=== PATIENT | male | born 1955 | race Caucasian/White ===

== ENCOUNTER 2017-11-20 07:02 | Day surgery (SDC) | payer OTHER ==
[2017-11-20 07:20] VITALS: BMI 44.7
[2017-11-20] MEDS ORDERED: PROPOFOL 20 ML ONE ×10 (08:12→08:14)
[2017-11-20 08:29] VITALS: TEMP 98
[2017-11-20 09:19] VITALS: BP 110/55; PULSE 62
--- NOTE | 2017-11-21 12:48 | PATH ---
Surgical Pathology Report Patient Name: HEIDY JOINER [facility]. Rec. #: [id number] /Age/Gender: 1955 (Age: 62) / M Account: [id number] Location: [facility]-ENDOSCOPY Taken: 11/20/2017 Received: 11/20/2017 Reported: 11/21/2017 Physicians: Jose Felix M.D. Specimen(s) Received POLYP DESCENDING COLON Clinical History Adenoma surveillance Postoperative diagnosis: Colon polyp, diverticulosis Final Diagnosis DESCENDING COLON, POLYP, BIOPSY: POLYPOID COLONIC MUCOSA WITH SMALL LYMPHOID AGGREGATE. Electronically Signed Wendy Romeo M.D. Gross Description Received in formalin, labeled "biopsy polyp descending colon" are 5 linares, irregular portions of soft tissue ranging from 0.1-0.3 cm. in greatest dimension. The specimens are submitted in toto in one cassette. /11/20/2017 saudi11/20/2017
== END 2017-11-20 09:27 | disposition home or self-care (01) ==
LOC: JASU-ENDO 07:02
PROVIDERS: ATTEND Internal Medicine Gastroenterology
PROC: 0DBM8ZX Excision of Descending Colon, Via Natural or Artificial Opening Endoscopic, Diagnostic (ICD-10-PCS; principal; 2017-11-20 08:00)
DX: Z12.11 Encounter for screening for malignant neoplasm of colon (principal); Z86.010 Personal history of colon polyps; D12.4 Benign neoplasm of descending colon; K64.8 Other hemorrhoids; K57.30 Diverticulosis of large intestine without perforation or abscess without bleeding
CPT/HCPCS: 88305-TC

== ENCOUNTER 2020-07-29 22:52 | Inpatient (IN) | payer BC ==
[2020-07-30] MEDS ORDERED: DEXAMETHASONE SOD PHOSPHATE 10 MG/1 ML VIAL IVPUSH ONE (00:25)
[2020-07-30] MEDS ORDERED: DEXAMETHASONE SOD PHOSPHATE 10 MG/1 ML VIAL ONE (00:37)
[2020-07-30 00:43] LABS: BASO % 0.3 % (0-2.0); EOS % 1.9 % (0-4.5); HEMATOCRIT 38.7 % (35.4-49); HEMOGLOBIN 12.7 GM/dL (11.7-16.9); LYMPH % 32.1 % (8-40); MCH 28.7 pg (25.7-33.7); MCHC 32.8 g/dl (32.0-35.9); MEAN CELL VOLUME 87.5 fl (80-96); MEAN PLT VOLUME 7.9 fl (7.5-11.1); MONO % 9.5 % (3.8-10.2); NEUT % 56.2 % (42.8-82.8); PLATELET COUNT 190 K/MM3 (134-434); RBC 4.43 M/mm3 (4.00-5.60); RDW 14.8 % (11.9-15.9); WHITE BLOOD COUNT 5.2 K/mm3 (4.0-10.0)
[2020-07-30 01:02] LABS: CHLORIDE 103 mmol/L (98-107); INR 1.08 (0.83-1.09); SODIUM 141 mmol/L (136-145)
[2020-07-30 01:04] LABS: ACTIVATED PTT 32.4 SECONDS (25.2-36.5)
[2020-07-30 01:05] LABS: ALBUMIN 3.1 g/dl (3.4-5.0); ANION GAP 6 MMOL/L (8-16); BLOOD UREA NITROGEN 11.8 mg/dL (7-18); CO2 32 mmol/L (21-32); GLUCOSE,RANDOM 89 mg/dL (74-106)
[2020-07-30 01:08] LABS: BILIRUBIN,DIRECT 0.2 mg/dL (0.0-0.2); CREATININE 0.9 mg/dL (0.55-1.3); EPI CELLS 10 /uL (0-25.1); HYALINE CASTS 4 /uL (0-3.1); SGOT/AST 21 U/L (15-37); SGPT/ALT 24 U/L (13-61); URINE APPEARANCE CLEAR; URINE BACTERIA 24 /uL (0-1359); URINE BILIRUBIN NEGATIVE (NEGATIVE); URINE COLOR DK YELLOW; URINE GLUCOSE (UA) NEGATIVE (NEGATIVE); URINE KETONE TRACE (NEGATIVE); URINE LEUK ESTERASE NEGATIVE (NEGATIVE); URINE NITRITE NEGATIVE (NEGATIVE); URINE PROTEIN 1+ (NEGATIVE); URINE RBC 15 /uL (0-23.9); URINE UROBILINOGEN 0.2 mg/dL (0.2-1.0); URINE WBC 8 /uL (0-25.8)
[2020-07-30 01:09] LABS: LDH 221 U/L (87-246)
[2020-07-30 01:10] LABS: BILIRUBIN,TOTAL 0.5 mg/dL (0.2-1); TOT PROT 6.7 g/dl (6.4-8.2)
[2020-07-30 01:11] LABS: ALK PHOS 69 U/L (45-117)
[2020-07-30 01:13] LABS: N-TERMINAL BNP 35.4 pg/ml (5-125)
[2020-07-30] MEDS ORDERED: ZINC SULFATE 220 MG CAPSULE (FP) PO ONE (03:04)
[2020-07-30] MEDS ORDERED: ZINC SULFATE 220 MG CAPSULE (FP) ONE (03:28)
[2020-07-30 07:31] LABS: BLOOD UREA NITROGEN 11.5 mg/dL (7-18)
[2020-07-30 07:34] LABS: CREATININE 0.9 mg/dL (0.55-1.3)
[2020-07-30 07:40] LABS: BASO % 0.3 % (0-2.0); EOS % 1.6 % (0-4.5); HEMATOCRIT 39.2 % (35.4-49); HEMOGLOBIN 12.9 GM/dL (11.7-16.9); LYMPH % 25.4 % (8-40); MCH 28.9 pg (25.7-33.7); MEAN CELL VOLUME 87.4 fl (80-96); MEAN PLT VOLUME 8.2 fl (7.5-11.1); MONO % 9.6 % (3.8-10.2); NEUT % 63.1 % (42.8-82.8); PLATELET COUNT 180 K/MM3 (134-434); RBC 4.48 M/mm3 (4.00-5.60); RDW 15.1 % (11.9-15.9); WHITE BLOOD COUNT 6.6 K/mm3 (4.0-10.0)
[2020-07-30] MEDS ORDERED: FAMOTIDINE 20 MG TABLET ONE (09:10)
[2020-07-30] MEDS ORDERED: DEXAMETHASONE SOD PHOSPHATE 4 MG/1 ML VIAL ONE (09:10)
[2020-07-30] MEDS ORDERED: LOSARTAN POTASSIUM 50 MG TABLET ONE (09:10)
[2020-07-30] MEDS ORDERED: ENOXAPARIN NA (PORCINE) 40 MG/0.4 ML DISP.SYRIN SQ ONE (09:10)
[2020-07-30] MEDS ORDERED: CHOLECALCIFEROL (VIT D3) 1,000 UNIT (25 MCG) TABLET ONE (09:10)
[2020-07-30] MEDS ORDERED: amLODIPine BESYLATE 5 MG TABLET (FP) ONE (09:10)
[2020-07-30] MEDS ORDERED: ASCORBIC ACID 500 MG TABLET (FP) ONE (09:10)
[2020-07-30] MEDS: LOSARTAN POTASSIUM 50 MG TABLET PO SCH (09:17)
[2020-07-30] MEDS: ASCORBIC ACID 500 MG TABLET (FP) PO SCH ×2 (09:17→21:21)
[2020-07-30] MEDS: CHOLECALCIFEROL (VIT D3) 1,000 UNIT (25 MCG) TABLET PO SCH (09:17)
[2020-07-30] MEDS: amLODIPine BESYLATE 5 MG TABLET (FP) PO SCH (09:17)
[2020-07-30] MEDS: ENOXAPARIN NA (PORCINE) 40 MG/0.4 ML DISP.SYRIN SQ SCH ×2 (09:17→21:22)
[2020-07-30] MEDS: DEXAMETHASONE SOD PHOSPHATE 4 MG/1 ML VIAL IVPUSH SCH (09:17)
[2020-07-30] MEDS: FAMOTIDINE 20 MG TABLET PO SCH ×2 (09:17→21:21)
[2020-07-30] MEDS ORDERED: ENOXAPARIN NA (PORCINE) 40 MG/0.4 ML DISP.SYRIN SQ SCH (10:00)
[2020-07-30] MEDS ORDERED: REMDESIVIR 200 MG in SODIUM CHLORIDE 210 ML IVPB ONE (13:00)
[2020-07-30 16:03] VITALS: BMI 39.7
[2020-07-30] MEDS: ATORVASTATIN CA 10 MG TABLET (FP) PO SCH (21:21)
[2020-07-31] MEDS: amLODIPine BESYLATE 5 MG TABLET (FP) PO SCH (09:45)
[2020-07-31] MEDS: CHOLECALCIFEROL (VIT D3) 1,000 UNIT (25 MCG) TABLET PO SCH (09:45)
[2020-07-31] MEDS: LOSARTAN POTASSIUM 50 MG TABLET PO SCH (09:45)
[2020-07-31] MEDS: FAMOTIDINE 20 MG TABLET PO SCH ×2 (09:45→21:09)
[2020-07-31] MEDS: ENOXAPARIN NA (PORCINE) 40 MG/0.4 ML DISP.SYRIN SQ SCH ×2 (09:45→21:08)
[2020-07-31] MEDS: DEXAMETHASONE SOD PHOSPHATE 4 MG/1 ML VIAL IVPUSH SCH (09:45)
[2020-07-31] MEDS: ASCORBIC ACID 500 MG TABLET (FP) PO SCH ×2 (09:46→21:08)
[2020-07-31] MEDS: REMDESIVIR 100 MG in SODIUM CHLORIDE 230 ML IVPB SCH (14:19)
[2020-07-31] MEDS: ATORVASTATIN CA 10 MG TABLET (FP) PO SCH (21:08)
[2020-08-01] MEDS: amLODIPine BESYLATE 5 MG TABLET (FP) PO SCH (10:39)
[2020-08-01] MEDS: ASCORBIC ACID 500 MG TABLET (FP) PO SCH ×2 (10:39→22:47)
[2020-08-01] MEDS: DEXAMETHASONE SOD PHOSPHATE 4 MG/1 ML VIAL IVPUSH SCH (10:39)
[2020-08-01] MEDS: LOSARTAN POTASSIUM 50 MG TABLET PO SCH (10:39)
[2020-08-01] MEDS: ENOXAPARIN NA (PORCINE) 40 MG/0.4 ML DISP.SYRIN SQ SCH ×2 (10:39→22:47)
[2020-08-01] MEDS: CHOLECALCIFEROL (VIT D3) 1,000 UNIT (25 MCG) TABLET PO SCH (10:39)
[2020-08-01] MEDS: FAMOTIDINE 20 MG TABLET PO SCH ×2 (10:39→22:49)
[2020-08-01] MEDS: REMDESIVIR 100 MG in SODIUM CHLORIDE 230 ML IVPB SCH (13:18)
[2020-08-01 17:28] LABS: ALBUMIN 3.1 g/dl (3.4-5.0); BLOOD UREA NITROGEN 20.4 mg/dL (7-18); CALCIUM 8.3 mg/dL (8.5-10.1)
[2020-08-01 17:33] LABS: BILIRUBIN,TOTAL 0.3 mg/dL (0.2-1); TOT PROT 6.7 g/dl (6.4-8.2)
[2020-08-01] MEDS: ATORVASTATIN CA 10 MG TABLET (FP) PO SCH (22:46)
[2020-08-02 09:08] LABS: BASO % 0.3 % (0-2.0); HEMATOCRIT 36.5 % (35.4-49); HEMOGLOBIN 12.4 GM/dL (11.7-16.9); LYMPH % 23.5 % (8-40); MCH 29.3 pg (25.7-33.7); MCHC 33.8 g/dl (32.0-35.9); MEAN CELL VOLUME 86.6 fl (80-96); MEAN PLT VOLUME 8.8 fl (7.5-11.1); MONO % 8.6 % (3.8-10.2); NEUT % 67.6 % (42.8-82.8); PLATELET COUNT 248 K/MM3 (134-434); RBC 4.21 M/mm3 (4.00-5.60); RDW 14.5 % (11.9-15.9); WHITE BLOOD COUNT 7.7 K/mm3 (4.0-10.0)
[2020-08-02] MEDS: ENOXAPARIN NA (PORCINE) 40 MG/0.4 ML DISP.SYRIN SQ SCH ×2 (09:27→22:23)
[2020-08-02] MEDS: ASCORBIC ACID 500 MG TABLET (FP) PO SCH ×2 (09:28→22:23)
[2020-08-02] MEDS: LOSARTAN POTASSIUM 50 MG TABLET PO SCH (09:28)
[2020-08-02] MEDS: CHOLECALCIFEROL (VIT D3) 1,000 UNIT (25 MCG) TABLET PO SCH (09:28)
[2020-08-02] MEDS: DEXAMETHASONE SOD PHOSPHATE 4 MG/1 ML VIAL IVPUSH SCH (09:28)
[2020-08-02] MEDS: amLODIPine BESYLATE 5 MG TABLET (FP) PO SCH (09:28)
[2020-08-02] MEDS: FAMOTIDINE 20 MG TABLET PO SCH ×2 (09:28→22:23)
[2020-08-02] MEDS: REMDESIVIR 100 MG in SODIUM CHLORIDE 230 ML IVPB SCH (13:55)
[2020-08-02] MEDS: ATORVASTATIN CA 10 MG TABLET (FP) PO SCH (22:23)
[2020-08-03 09:14] VITALS: BP 121/67; TEMP 98.2
[2020-08-03] MEDS: FAMOTIDINE 20 MG TABLET PO SCH (10:35)
[2020-08-03] MEDS: amLODIPine BESYLATE 5 MG TABLET (FP) PO SCH (10:35)
[2020-08-03] MEDS: ENOXAPARIN NA (PORCINE) 40 MG/0.4 ML DISP.SYRIN SQ SCH (10:35)
[2020-08-03] MEDS: CHOLECALCIFEROL (VIT D3) 1,000 UNIT (25 MCG) TABLET PO SCH (10:35)
[2020-08-03] MEDS: LOSARTAN POTASSIUM 50 MG TABLET PO SCH (10:35)
[2020-08-03] MEDS: ASCORBIC ACID 500 MG TABLET (FP) PO SCH (10:35)
[2020-08-03] MEDS: DEXAMETHASONE SOD PHOSPHATE 4 MG/1 ML VIAL IVPUSH SCH (10:36)
[2020-08-03 11:09] VITALS: PULSE 95
[2020-08-03] MEDS: REMDESIVIR 100 MG in SODIUM CHLORIDE 230 ML IVPB SCH (13:20)
== END 2020-08-03 17:51 | disposition home or self-care (01) | DRG 177 ==
LOC: JER 22:52 → JERBED 07-30 02:14 → J8W 07-30 11:03 → J7W 08-01 18:56
PROVIDERS: ADMIT Hospitalist; ATTEND Internal Medicine
PROC: XW033E5 Introduction of Remdesivir Anti-infective into Peripheral Vein, Percutaneous Approach, New Technology Group 5 (ICD-10-PCS; principal; 2020-07-31)
PROC: XW13325 Transfusion of Convalescent Plasma (Nonautologous) into Peripheral Vein, Percutaneous Approach, New Technology Group 5 (ICD-10-PCS; 2020-07-31)
DX: U07.1 COVID-19 (principal); J12.89 Other viral pneumonia; J96.01 Acute respiratory failure with hypoxia; Z68.41 Body mass index [BMI] 40.0-44.9, adult; E66.01 Morbid (severe) obesity due to excess calories; I10 Essential (primary) hypertension; E78.5 Hyperlipidemia, unspecified
CPT/HCPCS: 36415; 36430; 71045-TC-FY; 80048; 80053; 81003; 82248; 82550; 82728; 83036; 83605; 83615; 83880; 84484; 85025; 85379; 85610; 85730; 86140; 86850; 86900; 86901; 87040; 87086; 87804; 93005; 93010; 94761; 99285-25; C9399; C9803; J1100; P9017; U0003

== ENCOUNTER → 2021-07-20 | Day surgery (SDC) | payer BC | END | disposition home or self-care (01) | LOC: JRADIR 08:42 | PROVIDERS: ATTEND Internal Medicine Endocrinology, Diabetes & Metabolism | PROC: 0G9K3ZX Drainage of Thyroid Gland, Percutaneous Approach, Diagnostic (ICD-10-PCS; principal; 2021-07-20) | DX: E04.1 Nontoxic single thyroid nodule (principal) | CPT/HCPCS: 10005; 76942 ==

== ENCOUNTER 2022-11-23 04:11 | Day surgery (SDC) | payer BC ==
[2022-11-18 16:33] VITALS: BMI 45.6
[2022-11-23 09:14] VITALS: TEMP 98
[2022-11-23 09:41] VITALS: PULSE 73
[2022-11-23 09:59] VITALS: BP 108/43; RESP 13
== END 2022-11-23 10:20 | disposition home or self-care (01) ==
LOC: JASU-ENDO 04:11
PROVIDERS: ATTEND Internal Medicine Gastroenterology
PROC: 0DJD8ZZ Inspection of Lower Intestinal Tract, Via Natural or Artificial Opening Endoscopic (ICD-10-PCS; principal; 2022-11-23 09:00)
DX: Z12.11 Encounter for screening for malignant neoplasm of colon (principal); K57.30 Diverticulosis of large intestine without perforation or abscess without bleeding; K64.8 Other hemorrhoids; Z86.010 Personal history of colon polyps

== ENCOUNTER 2023-03-16 04:10 | Day surgery (SDC) | payer BC ==
[2023-03-13 16:29] VITALS: BMI 42.8
[2023-03-16 10:06] VITALS: BP 132/70; PULSE 84; RESP 20; TEMP 97
[2023-03-16] MEDS ORDERED: BUPIVACAINE HCL/PF 0.5% (5MG/ML) 10 ML VIAL ONE (10:42)
[2023-03-16] MEDS ORDERED: oxyCODONE HCL 5 MG TABLET PO PRN (11:31)
[2023-03-16] MEDS ORDERED: ONDANSETRON 4 MG/2 ML VIAL IVPUSH PRN (11:31)
[2023-03-16] MEDS ORDERED: LACTATED RINGERS SOLUTION 1,000 ML IV SCH (11:45)
== END 2023-03-16 12:09 | disposition home or self-care (01) ==
LOC: JASU-SURG 04:10
PROVIDERS: ATTEND Surgery
DX: Z53.8 Procedure and treatment not carried out for other reasons (principal)

== ENCOUNTER 2025-04-09 13:00 | Emergency (ER) | payer BC ==
[2025-04-09 13:13] VITALS: RESP 18; TEMP 98; BMI 41.3
[2025-04-09 15:08] LABS: MCHC 31.7 g/dl (32.3-36.5); MEAN CELL VOLUME 93.6 fl (79.0-92.2); MEAN PLT VOLUME 9.6 fl (9.4-12.4); RDW 14.0 % (12.2-16.4)
[2025-04-09 15:49] LABS: GLUCOSE,RANDOM 88.0 mg/dL (74-106); TOT PROT 6.4 g/dl (6.4-8.2)
[2025-04-09 15:50] LABS: CO2 25.0 mmol/L (21-32)
[2025-04-09 15:52] LABS: ALK PHOS 78.0 U/L (40-150)
[2025-04-09 15:54] LABS: SGOT/AST 20.0 U/L (5-34); SGPT/ALT 17.0 U/L (0-55)
[2025-04-09 15:55] LABS: CREATININE 0.98 mg/dL (0.55-1.3)
[2025-04-09] MEDS ORDERED: DALBAVANCIN HCL 500 MG VIAL (RESTRICTED TO ID ONLY) IVPB ONE (16:14)
[2025-04-09] MEDS: DALBAVANCIN HCL 1,500 MG in DEXTROSE 5%-WATER - 500 ML IVPB ONE (16:46)
[2025-04-09 16:47] LABS: ERYTHROCYTE SEDIMENTATION RATE 34 mm/hr (0-20)
[2025-04-09 16:52] LABS: HCV DIAGNOSTIC IN-HOUSE W/RFLX NON-REACTIVE (NONREACTIVE); HIV INTERPRETATION NEGATIVE (NEGATIVE)
[2025-04-09 17:42] VITALS: BP 124/57; PULSE 81
== END 2025-04-09 17:43 | disposition home or self-care (01) ==
LOC: JER 13:00
DX: L03.116 Cellulitis of left lower limb (principal); M79.89 Other specified soft tissue disorders
CPT/HCPCS: 36415; 80053; 85025; 85651; 86140; 86803; 87389; 93005; 93010; 93971-TC-RT; 99284-25; J0875